=== PATIENT | female | born 1995 | race Caucasian/White ===

== ENCOUNTER 2016-09-04 09:17 | Outpatient (CLI) | payer OTHER ==
--- NOTE | 2016-09-04 11:53 | DIAGNOSTIC IMAGING REPORT ---
PROCEDURE: MR LOWER EXT JOINT WO CONT-LT INDICATION: LT KNEE PAIN, initial encounter TECHNIQUE: Coronal T1 and STIR sequences through the whole pelvis. Three plane high-resolution PD and PD fat sat sequences through the hip. COMPARISON: None. FINDINGS: Normal cruciate and collateral ligaments. Normal medial meniscus. Lateral meniscus posterior horn tear extending posteriorly and probably to the tibial articular surface. Quadriceps and patellar tendons are normal. Lateral patellar subluxation with mild chondromalacia. There is no popliteal cyst. Moderate suprapatellar effusion. IMPRESSION: 1. Lateral meniscus posterior horn tear extending posteriorly and probably to the tibial articular surface 2. Lateral patellar subluxation with mild chondromalacia patella 3. Moderate suprapatellar effusion
== END 2016-09-04 23:00 ==
LOC: MRI SRH 09:17
DX: S83.282A Other tear of lateral meniscus, current injury, left knee, initial encounter (principal); S83.012A Lateral subluxation of left patella, initial encounter; M25.462 Effusion, left knee